=== PATIENT | male | born 1955 | race American Indian/Alaskan Native ===

== ENCOUNTER 2016-12-26 06:19 | Emergency (ER) | payer OTHER ==
[2016-12-26] MEDS ORDERED: Lidocaine 2% Jelly (Uro-Jet) TOP ONE (07:56)
[2016-12-26] MEDS ORDERED: Lidocaine 2% Jelly (Uro-Jet) ONE (08:04)
--- NOTE | 2016-12-26 09:10 | C.PDOC ---
History Of Present Illness 60 y/o male presents to ED with c/o hemorrhoids on/off for the past several years. Patient states they have worsened over the past 3-4 days, associated with intermittent bleeding. Patient states he has attempted sits baths with minimal relief. Denies fever, chills, abdominal pain, diarrhea, dizziness, lightheadedness, or other complaints. Time Seen by Provider: 12/26/16 07:22 Chief Complaint (Nursing): GI Problem History Per: Patient History/Exam Limitations: no limitations Onset/Duration Of Symptoms: Days, Intermittent Episodes Current Symptoms Are (Timing): Still Present Recent travel outside of the [place]: No Past Medical History Reviewed: Historical Data, Nursing Documentation, Vital Signs Vital Signs: Last Vital Signs Temp 97.9 F 12/26/16 09:20 Pulse 61 12/26/16 09:20 Resp 17 12/26/16 09:20 BP 149/92 H 12/26/16 09:20 Pulse Ox 96 12/26/16 10:20 - Medical History PMH: Diverticulitis Family History: States: Unknown Family Hx - Social History Hx Tobacco Use: Yes Hx Alcohol Use: Yes Hx Substance Use: No - Immunization History Hx Tetanus Toxoid Vaccination: No Hx Influenza Vaccination: No Hx Pneumococcal Vaccination: No Review Of Systems Except As Marked, All Systems Reviewed And Found Negative. Constitutional: Negative for: Fever, Chills Gastrointestinal: Positive for: Rectal Pain. Negative for: Vomiting, Abdominal Pain, Diarrhea Skin: Negative for: Rash Physical Exam - Physical Exam Appears: Non-toxic, No Acute Distress Skin: Normal Color, Warm, Dry Head: Atraumatic, Normacephalic Oral Mucosa: Moist Chest: Symmetrical Cardiovascular: Rhythm Regular Respiratory: Normal Breath Sounds, No Rales, No Rhonchi, No Wheezing Gastrointestinal/Abdominal: Soft, No Tenderness, No Guarding, No Rebound Rectal: Hemorrhoids (Large extrenal hemorrhoids to 3, 6, 9 positions, non- thrombosed) Back: Normal Inspection Extremity: Normal ROM, Capillary Refill (< 2 sec. ) Neurological/Psych: Oriented x3, Normal Speech, Normal Cognition ED Course And Treatment O2 Sat by Pulse Oximetry: 96 (RA) Pulse Ox Interpretation: Normal Medical Decision Making Medical Decision Making: Lidocaine gel placed on hemorrhoids placed on hemorrhoids. PAtient was instructed to perform high fiber diet and to stop straining during bowel movements. Disposition - Disposition Referrals: Anival Monroy MD [Staff Provider] - Osmani Granados MD [Staff Provider] - Alix Field MD [Staff Provider] - Disposition: HOME/ ROUTINE Disposition Time: 09:04 Condition: GOOD Additional Instructions: Follow up with the GI and surgeon doctor within 1-2 days, Return if worsened, Prescriptions: Docusate Sodium [Colace] 100 mg PO DAILY #30 capsule Hydrocortisone 2.5% (Rectal) [Anusol-Hc] 1 appl RC BID #1 tube Instructions: Hemorrhoids (ED), Rectal Bleeding (ED), High Fiber Diet (ED) - Clinical Impression Clinical Impression: Rectal bleeding, Hemorrhoids - PA / 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 - Scribe Statement The provider has reviewed the documentation as recorded by the Scribe Mirza Camargo All medical record entries made by the Briannaibfrantz were at my direction and personally dictated by me. I have reviewed the chart and agree that the record accurately reflects my personal performance of the history, physical exam, medical decision making, and the department course for this patient. I have also personally directed, reviewed, and agree with the discharge instructions and disposition.
[2016-12-26 09:21] VITALS: BP 149/92; PULSE 61; RESP 17; TEMP 97.9
[2016-12-26 10:10] VITALS: O2SAT 96
== END 2016-12-26 09:42 | disposition home or self-care (01) ==
LOC: C.ER 06:19
DX: K64.4 Residual hemorrhoidal skin tags (principal); K62.5 Hemorrhage of anus and rectum

== ENCOUNTER 2017-03-09 10:14 | Day surgery (SDC) | payer OTHER ==
[2017-03-09] MEDS ORDERED: Propofol 10 mg/ml Inj (20 ML) ONE (11:51)
[2017-03-09] MEDS ORDERED: Lactated Ringer's 1,000 ML IV ONE (11:55)
[2017-03-09 12:36] VITALS: BMI 24.9
[2017-03-09 12:40] VITALS: TEMP 98
[2017-03-09 12:42] VITALS: RESP 15
[2017-03-09 13:23] VITALS: O2SAT 98
[2017-03-09] MEDS ORDERED: Lactated Ringer's 500 ML IV SCH (13:30)
[2017-03-09 13:39] VITALS: BP 117/74; PULSE 64
== END 2017-03-09 13:39 | disposition home or self-care (01) ==
LOC: C.ENDO 10:14
PROVIDERS: ATTEND Internal Medicine Gastroenterology
DX: K57.90 Diverticulosis of intestine, part unspecified, without perforation or abscess without bleeding (principal); K64.8 Other hemorrhoids
CPT/HCPCS: 45378; J2001; J2704; J7120